=== PATIENT | male | born 1975 | race Two or more races ===

== ENCOUNTER 2019-02-14 15:56 | Emergency (ER) | payer SELFPAY ==
[~2019-02-14] VITALS: Ht 170.2 cm; Wt 85.3 kg
[2019-02-14 16:40] VITALS: BP 121/86
--- NOTE | 2019-02-14 16:40 | NUR ---
ED Nurse Note: Patient walked in to ER from home due to scrotum pain 01/12. Patient is alert and oriented x4 and ambulatory. Skin clean and intact. Calm and cooperative but moaning for pain. No acute distress noted at this moment.
[2019-02-14] MEDS ORDERED: Isovue-300 100ml vial INJ PRN (16:45)
[2019-02-14 16:55] LABS: APPEARANCE,URINE CLEAR; BILIRUBIN, URINE NEGATIVE (NEGATIVE); COLOR,URINE PALE YELLOW; GLUCOSE, URINE (UA) NEGATIVE (NEGATIVE); KETONES,URINE NEGATIVE (NEGATIVE); LEUKOCYTE ESTERASE ,URINE 2+ (NEGATIVE); NITRITE,URINE NEGATIVE (NEGATIVE); PH,URINE 6 (4.5-8.0); PROTEIN,URINE NEGATIVE (NEGATIVE); UROBILINOGEN,URINE NORMAL MG/DL (0.0-1.0)
[2019-02-14 17:29] LABS: BASOPHILS % (AUTO) 1.1 % (0.0-2.0); EOSINOPHILS % (AUTO) 4.8 % (0.0-3.0); HEMATOCRIT 38.7 % (42.0-52.0); HEMOGLOBIN 13.6 G/DL (14.2-18.0); LYMPHOCYTES % (AUTO) 15.1 % (20.0-45.0); MEAN CORPUSCULAR VOLUME 78 FL (80-99); PLATELET COUNT 251 K/UL (150-450); RED BLOOD COUNT 4.94 M/UL (4.70-6.10); RED CELL DISTRIBUTION WIDTH 11.3 % (11.6-14.8); WHITE BLOOD COUNT 16.6 K/UL (4.8-10.8)
--- NOTE | 2019-02-14 17:35 | Emergency Room Report ---
History of Present Illness General Chief Complaint: Male Urogenital Problems Source: Patient Present Illness HPI 43-year-old transgender recently returning from male to female here complaining of 3 days of right-sided lower abdominal pain and urinary frequency as well as dysuria. Patient reports that he went to see his primary care yesterday and was given Bactrim DS. Patient complains of the pain now is radiating to the right flank and right-sided testicles. Denies fever and chills, no chest pain, palpitation, diarrhea or constipation. Denies blood in urine. Patient patient was diagnosed with prostate infection by pcp. Currently treated with Bactrim DS yesterday of worsening pain. Patient appears in mild distress. Rating the pain 10 out of 10 Allergies: Coded Allergies: No Known Allergies (Unverified , 02/14/19) Patient History Past Medical History: see triage record Past Surgical History: unable to obtain Pertinent Family History: none Immunizations: UTD Reviewed Nursing Documentation: PMH: Agreed; PSxH: Agreed Nursing Documentation-PMH Past Medical History: No History, Except For Hx Asthma: Yes Review of Systems All Other Systems: negative except mentioned in HPI Physical Exam Vital Signs Date Time Temp Pulse Resp B/P (MAP) Pulse Ox O2 Delivery O2 Flow Rate FiO2 02/14/19 16:19 99.5 85 16 121/86 (98) 96 Room Air Sp02 EP Interpretation: reviewed, normal General Appearance: no apparent distress, alert, GCS 15, non-toxic Head: normocephalic, atraumatic Eyes: bilateral eye normal inspection, bilateral eye PERRL ENT: hearing grossly normal, normal pharynx, no angioedema, normal voice Neck: full range of motion, supple/symm/no masses Respiratory: chest non-tender, lungs clear, normal breath sounds, speaking full sentences Cardiovascular #1: regular rate, rhythm, no edema, no murmur Gastrointestinal: normal bowel sounds, non tender, soft, non-distended, no rebound, guarding - Right lower quadrant, other - Negative Laurent's, negative McBurney's, negative Rovsing Rectal: deferred Genitourinary: normal inspection, no CVA tenderness Musculoskeletal: back normal, gait/station normal, normal range of motion, non- tender Neurologic: alert, oriented x3, responsive, motor strength/tone normal, sensory intact, speech normal Psychiatric: judgement/insight normal, memory normal, mood/affect normal, no suicidal/homicidal ideation Skin: no rash Lymphatic: no adenopathy Medical Decision Making PA Attestation All my diagnosis and treatment plans were reviewed ad discussed with my supervising physician Dr. Ballard Diagnostic Impression: Primary Impression: Pyelonephritis ER Course 43-year-old transgender recently returning from male to female here complaining of 3 days of right-sided lower abdominal pain and urinary frequency as well as dysuria. Patient reports that he went to see his primary care yesterday and was given Bactrim DS. Patient complains of the pain now is radiating to the right flank and right-sided testicles. Denies fever and chills, no chest pain, palpitation, diarrhea or constipation. Denies blood in urine. Patient patient was diagnosed with prostate infection by pcp. Currently treated with Bactrim DS yesterday of worsening pain. Patient appears in mild distress. Rating the pain 10 out of 10 Ddx considered but are not limited to: appendicitis, cholecystis, gastritis, gastroenteritis, UTI, pyelonephritis, SBO, diverticulitis, Vital signs: are WNL, pt. is afebrile H&PE are most consistent with: Pyelonephritis ORDERS: abdominal CT, testicular ultrasound, abdominal pain set, Rocephin, azithromycin ED INTERVENTIONS: Rocephin DISCHARGE: At this time pt. is stable for d/c to home. Will provide printed patient care instructions, and any necessary prescriptions. Care plan and follow up instructions have been discussed with the patient prior to discharge. At this time due to patient not being febrile or nauseated and able to tolerate p.o. antibiotics patient to be discharged with controlled pyelonephritis patient agrees with the course of treatment. Advised the patient to return to the emergency room with worsening symptoms, fever and chills. Also follow-up with her primary care provider for referral to urologist. CT/MRI/US Diagnostic Results CT/MRI/US Diagnostic Results #1: Imaging Test Ordered: CT abdomen pelvis Impression Striated right nephrogram concerning for pyelonephritis. No hydronephrosis. Mildly thickened bladder which may be underdistention versus cystitis. No appendicitis, SBO, or diverticulitis. Unremarkable gallbladder and pancreas. CT/MRI/US Diagnostic Results #2: Imaging Test Ordered: Testicular ultrasound Impression no Mass noted within normal limits Last Vital Signs Date Time Temp Pulse Resp B/P (MAP) Pulse Ox O2 Delivery O2 Flow Rate FiO2 02/14/19 16:40 99.5 94 16 121/86 96 Room Air Disposition: HOME, SELF-CARE Condition: Stable Referrals: NON PHYSICIAN (PCP) Patient Instructions: Pyelonephritis, Adult Additional Instructions: Take medication as directed follow-up with your primary care provider if worsening symptoms return to the emergency room. Jesse Johnston Feb 14, 2019 17:35
[2019-02-14 17:38] LABS: ANION GAP 12 mmol/L (5-15); BLOOD UREA NITROGEN 7 mg/dL (7-18); CALCIUM 8.9 MG/DL (8.5-10.1); CARBON DIOXIDE 25 MMOL/L (21-32); CHLORIDE 101 MMOL/L (98-107); CREATININE 1.1 MG/DL (0.55-1.30); POTASSIUM 4.1 MMOL/L (3.5-5.1); SODIUM 138 MMOL/L (136-145)
[2019-02-14 17:39] LABS: INR 0.9 (0.9-1.1)
[2019-02-14 17:43] LABS: ALANINE AMINOTRANSFERASE 45 U/L (12-78); ALBUMIN 3.6 G/DL (3.4-5.0); ALBUMIN/GLOBULIN RATIO 0.9 (1.0-2.7); ALKALINE PHOSPHATASE 65 U/L (46-116); ASPARTATE AMINO TRANSFERASE 32 U/L (15-37); BILIRUBIN,TOTAL 0.5 MG/DL (0.2-1.0)
--- NOTE | 2019-02-14 18:24 | Diagnostic Imaging Report ---
Clinical Indication: 3 days right-sided lower abdominal pain, urinary frequency, and dysuria Technique: No oral contrast utilized, per emergency room physician request IV administration nonionic contrast. Venous phase spiral acquisition obtained through the abdomen and pelvis. Multiplanar reconstructions were generated. Total dose length product 915.96 mGycm. CTDIvol(s) 15.7 mGy. Dose reduction achieved using automated exposure control Comparison: none Findings: The appendix is unusually large, but is filled with gas and there is no periappendiceal inflammation. There is no evidence of diverticulosis or diverticulitis. No small bowel distention. No free or loculated intraperitoneal gas or fluid is evident. The distal esophagus, stomach, duodenum are unremarkable. There is heterogeneity to the contrast opacification of the right kidney. There is equivocal minimal indistinctness to the renal margins. The bladder demonstrates apparent mild wall thickening, but this could be an artifact of under distention. No renal mass The liver, gallbladder, bile ducts, pancreas, spleen, adrenals are unremarkable. There are prominent but not frankly enlarged retroperitoneal nodes. No pelvic mass or adenopathy. The testicles are within the inguinal canals bilaterally, suspect surgically elevated. Innumerable nodules are seen within the bilateral lower flank and buttock subcutaneous fat, likely on the basis of prior silicone injections. There are bilateral breast prostheses. The included lung bases demonstrate posterior dependent atelectatic changes. The bones are unremarkable. Impression: Heterogeneous renal parenchymal opacification, probably indicates nephritis given stated clinical history Mild bladder wall thickening, likely an artifact of under distention but could indicate cystitis Bilateral posterior pulmonary parenchymal atelectatic changes Post surgical changes, as described This agrees with the preliminary interpretation provided overnight by [facility]. The CT scanner at [facility] is accredited by the [employer] and the scans are performed using protocols designed to limit radiation exposure to as low as reasonably achievable to attain images of sufficient resolution adequate for diagnostic evaluation.
[2019-02-14] MEDS ORDERED: cefTRIAXone 1 GM in NS 55 ML IVPB ONE (18:45)
[2019-02-14] MEDS ORDERED: Azithromycin 250mg tab ORAL ONE (18:45)
--- NOTE | 2019-02-14 19:18 | NUR ---
HAND-OFF: Report given to Ellen LOPEZ.
--- NOTE | 2019-02-14 19:23 | NUR ---
ED Nurse Note: Patient cleared for discharge, verbalized understanding of discharge instructions. ID band removed, Iv removed. Patient departed with all belongings accompanied by his friend.
[2019-02-14 19:24] VITALS: BP 121/86
--- NOTE | 2019-02-15 11:10 | Emergency Room Report ---
Physical Exam Vital Signs Date Time Temp Pulse Resp B/P (MAP) Pulse Ox O2 Delivery O2 Flow Rate FiO2 02/14/19 16:19 99.5 85 16 121/86 (98) 96 Room Air Medical Decision Making Diagnostic Impression: Primary Impression: Pyelonephritis ER Course Spoke with patient over phone regarding Ultrasound scrotal findings and to have a repeat ultrasound in 2-3 weeks Last Vital Signs Date Time Temp Pulse Resp B/P (MAP) Pulse Ox O2 Delivery O2 Flow Rate FiO2 02/14/19 19:24 99.5 94 16 121/86 96 Room Air Disposition: HOME, SELF-CARE Condition: Stable Referrals: NON PHYSICIAN (PCP) Patient Instructions: Pyelonephritis, Adult Additional Instructions: Take medication as directed follow-up with your primary care provider if worsening symptoms return to the emergency room. Micheal Arreguin MD Feb 15, 2019 11:10
--- NOTE | 2019-02-15 12:24 | Diagnostic Imaging Report ---
Indications: Testicular pain bilateral Technique: Grayscale and duplex images of the scrotum Comparison: none Findings:The right testicle measures 3cm in length. It demonstrates heterogeneous echogenicity. Normal Doppler flow. A 13 mm cyst seen in the right epididymal head. The left testicle measures 3.7 cm in length. It demonstrates heterogeneous echogenicity and normal Doppler flow. There is a focal hypoechoic area in the lateral left testicle which measures approximately 1.6 x 2.3 cm in diameter. This does not appear masslike. There is equivocal focal hyperemia of this area. Normal epididymis. Impression: Hypoechoic area in the lateral left testicle measuring 1.6 x 2.3 cm diameter. This may just represent a prominent epididymal head and tail with distortion of the anatomy related to prior surgery. However, this is equivocally slightly hyperemic, could represent a focal area of inflammation/infection either of the testicle or of the epididymis. Although this does not appear particularly masslike, the possibility of testicular neoplasm should also be considered. Recommend follow-up sonography in 2-3 weeks after patient's acute symptoms resolve Negative for evidence of testicular torsion Incidental finding of a cyst in the right epididymal head, either a spermatocele or epididymal cyst Findings represent a variation from the preliminary report.. Variant findings discussed by phone with Dr. Arreguin in the emergency room at the time of interpretation
== END 2019-02-14 19:25 | disposition home or self-care (01) ==
LOC: EMR 17:11
DX: N12 Tubulo-interstitial nephritis, not specified as acute or chronic (principal); J45.909 Unspecified asthma, uncomplicated
CPT/HCPCS: 36415; 74177; 76870; 80053; 80307; 81001; 85025; 85610; 85730; 86850; 86900; 86901; 96365; 99284; J0696; Q9967